=== PATIENT | male | born 1980 | race Caucasian/White ===

== ENCOUNTER 2023-02-24 09:44 | Day surgery (SDC) | payer OTHER, SELFPAY ==
[2023-02-24] VITALS (12 sets, daily range): BP systolic 116–135; BP diastolic 66–98; PULSE 83–117; RESP 14–18; TEMP 36.2–36.8; O2SAT 91–98; BMI 40.7
[2023-02-24] MEDS: LACTATED RINGERS 1000 ML 1,000 ML 100 ML IV (10:36)
[2023-02-24] MEDS: SODIUM CHLORIDE 0.9 % (FLUSH) 10 ML SYRINGE IVF ×2 (10:36→10:45)
[2023-02-24] MEDS: LACTATED RINGERS 1000 ML 1,000 ML 35 ML IV (10:45)
--- NOTE | 2023-02-24 11:07 | W.ANESCHARGE ---
Anesthesia Charges Start Date/Time Anesthesia Start Date: 02/24/23 Anesthesia Start Time: 11:28 Stop Date/Time Anesthesia Stop Date: 02/24/23 Anesthesia Stop Time: 12:24
[2023-02-24] MEDS: BUPIVACAINE 0.5%/EPINEPHRINE 0.9 MG (30.9 ML) INJECTION (11:45)
[2023-02-24] MEDS: COCAINE HCL 4 % 4 ML SOLUTION NOSTRIL-B (11:45)
[2023-02-24] MEDS: MUPIROCIN 1 GM PACKET 1 APPLIC TOPICAL (12:00)
--- NOTE | 2023-02-24 12:28 | W.ANESCHARGE ---
Anesthesia Charges Start Date/Time Anesthesia Start Date: 02/24/23 Anesthesia Start Time: 11:28 Stop Date/Time Anesthesia Stop Date: 02/24/23 Anesthesia Stop Time: 12:24
--- NOTE | 2023-02-24 13:03 | W.PM.ENTPROC ---
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 A right hemitransfixion incision was made. Left anterior and posterior tunnels were created. A vertical incision was made to the cartilage and a right posterior tunnel created. The posterior deflected portions of septal bone were resected a large piece of bone was trimmed and returned the posterior intraseptal space and hemitransfixion closed with 2 4-0 chromic sutures. A stab incision was made in the anterior left inferior turbinate a tunnel created with a Grecia dissector. The noemi bone was outfractured and conservative anterior submucous resection was performed. Hemostasis was achieved with Coblation Wand and that Wand was then used to cauterize intramurally along the inferior 10% of the posterior head. This was repeated on the right inferior turbinate in identical fashion. Remainder procedure was done with the available assistance of a 0 degree endoscope. The right middle turbinate noemi bullosa was incised along its lateral aspect the bone infractured and then crushed with the Jeevan forceps. This was repeated on the left side in identical fashion. Silastic stents were secured with 3-0 nylon and a Merocel pack was trimmed lengthwise coated in ointment and placed a beneath the middle turbinates on each side. The patient procedure well was taken recovery in satisfactory condition blood loss was less than 25 mL. Surgeon: Lc Hoffmann MD
[2023-02-24] MEDS: IBUPROFEN 200 MG TABLET PO (13:48)
[2023-02-24] MEDS: ACETAMINOPHEN 325 MG TABLET PO (13:48)
== END 2023-02-24 14:25 | disposition home or self-care (01) ==
PROVIDERS: Visit Provider Otolaryngology
PROC: (CPT 31231; principal; 2023-02-24 11:00)
DX: J34.2 Deviated nasal septum (principal); J34.3 Hypertrophy of nasal turbinates; J34.89 Other specified disorders of nose and nasal sinuses
CPT/HCPCS: 30520; 30140; 31240; 00160; A9270; J0330; J1100; J2250; J2405; J2704; J3010; J7120